=== PATIENT | male | born 1960 | race Hispanic/Latino ===

== ENCOUNTER 2021-02-28 09:58 | Outpatient (CLI) | payer BC ==
[2021-02-28] MEDS ORDERED: REGADENOSON 0.4 MG/5 ML INJ IV ONE (10:26)
== END 2021-02-28 09:59 | disposition home or self-care (01) ==
LOC: CARD 09:58
PROVIDERS: ATTEND Internal Medicine
DX: R06.00 Dyspnea, unspecified (principal); R42 Dizziness and giddiness; M79.9 Soft tissue disorder, unspecified; Z72.0 Tobacco use; J43.9 Emphysema, unspecified
CPT/HCPCS: J2785

== ENCOUNTER 2021-10-18 08:14 | Outpatient (CLI) | payer BC ==
[~2021-10-18 08:14] MED LIST: AMINOPHYLLINE 500 MG/20 ML INJ IV ONE
[2021-10-18] MEDS ORDERED: REGADENOSON 0.4 MG/5 ML INJ IV ONE (10:12)
[2021-10-18] MEDS ORDERED: DEXTROSE 5% IV ONE (11:05)
[2021-10-18] MEDS ORDERED: WATER IV ONE (11:05)
[2021-10-18] MEDS ORDERED: AMINOPHYLLINE IV ONE (11:05)
[2021-10-18] MEDS ORDERED: AMINOPHYLLINE 500 MG/20 ML INJ IV ONE (12:00)
--- NOTE | 2021-10-18 12:22 | Nuclear Medicine Report ---
APPROVED REPORT Exam: Nuclear Stress Test Indication: Chest pain [facility]P Ht: 5 ft 10 in Wt: 165 lbs BSA: 1.92 m2 HR: 84 bpmBP: 112/55 mmHgBMI: 23.67 Rhythm: Sinus Rhythm Stress Test Details Stress Test: Pharmacologic stress testing performed using 0.4 mg of regadenoson per 5 mL given IV over 10 seconds. Reversal agent Aminophyline 50 mg, given intravenously for Shortness of Breath. HR Resting HR: 86 bpm Max HR Achieved: 123 bpm Max Heart Rate (APMHR): 157 bpm Target HR (85% APMHR): 133 bpm % of APMHR: 78 Recovery HR: 96 bpm HR response to stress: Normal HR response to stress BP Resting BP: 112/55 mmHg Max BP: 129/64 mmHg Recovery BP: 116/58 mmHg BP response to stress: Normal blood pressure response to stress. ECG Resting ECG: Sinus Rhythm,incomlete RBBB. Stress ECG: Sinus Tachycardia ST Change: None Arrhythmia: None Recovery ECG: Sinus Rhythm, Sinus Rhythm Recovery ST Change: None Recovery Arrhythmia: None Clinical Reason for Termination: Completed protocol Stress Symptoms: Shortness of Breath NM EXAM: Myocardial Perfusion REST/STRESS Imaging Protocol: Rest Tc-99m/Stress Tc-99m 1 day Resting Data Rest SPECT myocardial perfusion imaging was performed in supine position 45 minutes following the intravenous injection of 10 mCi of Tc-99m Myoview. Time of rest injection: 0930 Date: 10/18/2021 Pharmacologic Stress Pharmacologic stress test was performed by injecting Regadenoson 0.4 mg IV push followed by the intravenous injection of 28 mCi of Tc-99m Myoview. Time of stress injection: 1045 Date: 10/18/2021 Gated Stress SPECT was performed 30 minutes after stress injection. The images were gated to evaluate regional wall motion and calculate left ventricular ejection fraction. Study Data TID = 0.99. Perfusion Wall Motion Normal wall motion noted with calculated LVEF of 73% post vasodilation. Nuclear Conclusion ECG Findings: negative for ischemia Clinical Findings: negative for ischemia Nuclear Findings: negative for ischemia Exercise Capacity: not assessed Left Ventricular Function: normal Risk Study: low Normal study. No scintigraphic evidence for myocardial ischemia or scar. patient developed SOB with iv Regadenoson,requiring iv Aminophylline and use of inhaler and O2 supplementation.
[2021-10-18 15:08] VITALS: BP 122/55
== END 2021-10-18 08:15 | disposition home or self-care (01) ==
LOC: CARD 08:14
PROVIDERS: ATTEND Internal Medicine
DX: R06.02 Shortness of breath (principal); R07.89 Other chest pain
CPT/HCPCS: 78452; 93017; A9502; J0280; J2785